=== PATIENT | female | born 1980 | race Caucasian/White ===

== ENCOUNTER 2016-11-13 01:29 | Emergency (ER) | payer MEDICAID ==
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
[2016-11-13] MEDS: ASPIRIN 325 MG TAB ENTERIC-COATED PO ONE (01:57)
[2016-11-13] MEDS: IBUPROFEN 600 MG TABLET PO ONE (06:56)
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
== END 2016-11-13 07:13 | disposition home or self-care (01) ==
LOC: ER 01:29
DX: S09.90XA Unspecified injury of head, initial encounter (principal); M79.651 Pain in right thigh; R51 Headache; R07.81 Pleurodynia; Y04.8XXA Assault by other bodily force, initial encounter; F10.129 Alcohol abuse with intoxication, unspecified
CPT/HCPCS: 70450; 72125; 99283; 99284